=== PATIENT | male | born 1945 ===

== ENCOUNTER 2025-05-14 14:20 | Outpatient (AMB) | payer BC, SELFPAY ==
--- OUTSIDE RECORDS SUMMARY | 2025-05-14 15:05 | XMS_ITS ---
[facility] Name [facility] Organization Unknown Care Team Organization Name Specialty Phone Email Start Date End Da te [facility] Jd Noriega Primary [facility] 08/04/2022 05/15/2024
== END 2025-05-14 14:50 | disposition left against medical advice (07) ==
LOC: HO.HMGAL 14:20
PROVIDERS: Visit Provider Registered Nurse Emergency
DX: J30.89 Other allergic rhinitis (principal)
CPT/HCPCS: 95117; 95165

== ENCOUNTER 2025-05-15 13:43 | Outpatient (AMB) | payer BC, SELFPAY ==
--- OUTSIDE RECORDS SUMMARY | 2025-05-15 15:01 | XMS_ITS | Clinical Summary ---
Author Organization [facility] [address] [facility] Address [address] [facility] [place] [address] Phone Care Team Providers Care Electrologist Name Role Phone Denise Noriega MD Primary Care Provider [phone] Allergies Active Allergy Reactions Criticality Noted Date Comments Levofloxacin 01/03/2019 Medications aspirin 81 mg EC tablet Take 81 mg by mouth daily. Active meclizine (ANTIVERT) 25 mg tablet Take 1 Tablet by mouth 3 times daily as needed (vertigo). 08/26/2022 Active finasteride (PROSCAR) 5 mg tablet Take 1 tablet (5 mg total) by mouth 1 (one) time each day. Do not crush, chew, or split. 90 tablet 1 10/19/2024 Active fenofibrate (LOFIBRA) 160 mg tablet Take 1 tablet (160 mg total) by mouth 1 (one) time each day. 90 tablet 1 03/06/2025 Active levothyroxine (SYNTHROID, LEVOTHROID) 75 mcg tablet Take 1 tablet (75 mcg total) by mouth 1 (one) time each day. 90 tablet 1 03/06/2025 Active losartan (COZAAR) 25 mg tablet Take 1 tablet (25 mg total) by mouth 1 (one) time each day. 90 tablet 1 03/06/2025 Active metFORMIN (GLUCOPHAGE) 500 mg tablet TAKE 1 TABLET IN THE MORNING AND 2 TABLETS IN THE EVENING 270 tablet 1 03/06/2025 Active simvastatin (ZOCOR) 40 mg tablet Take 1.5 tablets (60 mg total) by mouth at bedtime. 135 tablet 1 03/06/2025 Active Active Problems Problem Noted Date Diagnosed Date Overweight (BMI 25.0-29.9) 02/07/2018 Nephrolithiasis 02/08/2017 Overview (07/24/2024): 01/11. Debi Type 2 diabetes mellitus wit h neurological manifestations, controlled ([facility] V24, [facility] V28) 02/19/2016 BPH (benign prostatic hyperplasia) 01/29/2016 Overview (07/24/2024): Prev elevated Psa. Bx neg. Diverticulosis of colon 01/29/2016 Essential hypertension 01/29/2016 Hypercholesteremia 01/29/2016 Hypothyroidism 01/29/2016 PAF (paroxysmal atrial fibri llation) ([facility] V24, [facility] V28) 01/29/2016 Overview (09/04/2024): 2016 Typically occurs with viral illness. ECHO 11/20/13- EF=60-65 %. Trace MR Vitamin D deficiency 01/29/2016 Encounters Date Type Department Care Team Description 03/06/2025 8:30 AM EDT Office Visit [facility] [address] [place] [phone] Denise Noriega MD Type 2 diabetes mellitus with neurological manifestations, controlled ([facility] V24, [facility] V28) (Primary Dx); Essential hypertension; PAF (paroxysmal atrial fibrillation) ([facility] V24, [facility] V28); Hypercholesteremia; Hypothyroidism, unspecified type 02/23/2025 3:30 PM EDT Telemedicine [facility] [address] [place] [phone] Encounter for subsequent annual wellness visit (AWV) in Medicare patient (Primary Dx) 02/22/2025 Telephone Internal Medicine - [facility] [address] [place] [place] [address] Sri Stevens [place] Medicare Annual Wellness Visit Subsequent (AWV DUE after 11/11/2024) from Last 3 Months Immunizations Name Administration Dates Next Due Influenza Quadravalent, MDCK , 0.5ml, preservative free (Flucelvax) 6mo and older 10/26/2019 Influenza trivalent, 0.5mL ( Fluad) 65yo and older 09/04/2024,08/26/2022,10/02/2020,10/23,09/03/2014,08/18/2013 Influenza trivalent, 0.5mL, preservative free (Fluarix; FluLaval; Fluzone) ages 6mo and older (Afluria) 3 years and older 08/07/2016 Influenza, Unspecified 07/29/2017 Pneumococcal conjugate 13 va lent (Prevnar 13, PCV13) 2mo and older 08/09/2017 Pneumococcal polysaccharide 23 valent (Pneumovax 23) 2yo and older 02/17/2016 Tdap Tetanus diptheria acell ular pertussis (Boostrix; Adacel) 7yo and older 02/08/2017 Surgical History Surgery Date Site/Laterality Comments OTHER SURGICAL HISTORY [id number] PROCEDURE: HISTORY OTHER; COMMENT: needle Bx prostate APPENDECTOMY PROCEDURE: HISTORICAL APPENDECTOMY OTHER SURGICAL HISTORY childhood PROCEDURE: HISTORY OTHER; COMMENT: Bronchial ademona removal Medical History Medical History Date Comments Vitamin D deficiency 01/29/2016 DX:Vitamin D deficiency BPH (benign prostatic hyperplasia) 01/29/2016 DX:BPH (benign prostatic hyperplasia) PAF (paroxysmal atrial fibri llation) ([facility] V24, [facility] V28) 01/29/2016 DX:PAF (paroxysmal atrial fibrillation) ([facility]); COMMENT: Typically occurs with viral illness Hypothyroidism 01/29/2016 DX:Hypothyroidis m Hypercholesteremia 01/29/2016 DX:Hyperchole steremia Hypertension 01/29/2016 DX:Hypertension PAT (paroxysmal atrial tachy cardia) ([facility] V24) 01/29/2016 DX:PAT (paroxysmal atrial tachycardia) ([facility]); COMMENT: Holter 11/06/13 Diverticulosis of colon 01/29/2016 DX:Diver ticulosis of colon Family History Medical History Relation Name Comments Crohn's disease Brother Coronary artery disease Father Diabetes Father Alzheimer's disease Mother Relation Name Status Comments Brother Father Mother Social History Tobacco Use Types Packs/Day Years Used Date Smoking Tobacco: Never Smokeless Tobacco: Never Tobacco Cessation:Counseling Given: Not Answered Alcohol Use Standard Drinks/Week Comments No 0 (1 standard drink = 0.6 oz pur e alcohol) Housing Instability Answer Date Recorde d Are you worried that in the next 2 months you may not have stable housing? No 02/23/2025 Food Access & Nutrition Answer Date Rec orded Do you have access to a vari ety of food including fruits and vegetables? Yes 02/23/2025 Access to Healthcare Answer Date Record ed Within the last 3 months, ho w many times did you visit the emergency department for your medical care? 0 02/23/2025 Health Literacy Answer Date Recorded How often do you need to hav e someone help you when you read instructions, pamphlets, or other written material from your doctor or pharmacy? Never 02/23/2025 Caregiver: How often do you need to have someone help you when you read instructions, pamphlets, or other written material from your doctor or pharmacy? Not on file 02/23/2025 Financial Risk Answer Date Recorded How hard is it for you to pa y for the very basics like food, housing, medical care, and air conditioning / heating? Not very hard 02/23/2025 Transportation Answer Date Recorded Has the lack of transportati on kept you from meetings, work, or from getting things needed for daily living? No Has the lack of transportati on kept you from medical appointments or from getting medications? No 02/23/2025 Social Isolation Answer Date Recorded How often do you feel lonely or isolated from th ose around you? Never 02/23/2025 Food Risk Answer Date Recorded Within the past 12 months we worried whether our food would run out before we got money to buy more. Never true 02/23/2025 Within the past 12 months th e food we bought just didn't last and we didn't have money to get more. Never true 02/23/2025 Dependent Care Answer Date Recorded Do you need help finding or paying for care for your loved ones. For example, child care centre manager or elderly care for an older adult? No 02/23/2025 Education Answer Date Recorded Do you think completing more education or training, like finishing a GED, going to college, or learning a trade, would be helpful for you? No 02/23/2025 Employment and Income Answer Date Recor ded During the last four weeks, have you been actively looking for work? No 02/23/2025 Living Situation Answer Date Recorded What is your living situation? 0 02/23/2025 Sex and Gender Information Value Date Recorded Sex Assigned at Not on file Legal Sex Male 9:51 PM EST Gender Identity Not on file Sexual Orientation Not on file Occupation Industry Job Start Date Job End Date RETIRED Not on file Not on file Not on file Obstetrics History Last Filed Vital Signs Vital Sign Reading Time Taken Comments Blood Pressure 132/67 03/06/2025 8:32 AM EDT Pulse 56 03/06/2025 8:32 AM EDT Temperature 36.2 C (97.2 F) 03/06/2025 8:32 AM EDT Respiratory Rate - - Oxygen Saturation - - Inhaled Oxygen Concentration - - Weight 75.2 kg (165 lb 12.8 oz) 03/06/2025 8:32 AM EDT Height 167.6 cm (5' 6 ) 03/06/2025 8:32 AM EDT Body Mass Index 26.76 03/06/2025 8:32 AM EDT Plan of Treatment Upcoming Encounters Date Type Department Care Team (Late st Contact Info) Description 10/08/2025 8:30 AM EST Office Visit Adult [facility] [address] [place] [phone] Denise Noriega MD [address] [place] [address] Health Maintenance Due Date Last Done Comments Zoster Vaccines (1 of 2) 1994 RSV Immunization Adult Patients (1 - 1-dose 75+ series) 11/29/2019 Diabetes: Annual Retina Eye Exam 04/27/2024 04/27/2023 COVID-19 Vaccine ( season) 2024 Influenza Vaccine (#1) 2025 , 08/22/2023, 08/26/2022, Additional history exists Diabetes: Annual Urine Albumin-Creatinine Ratio (uACR) 09/01/2025 09/01/2024, 02/29/2024 Diabetes: Blood Sugar Control Test (HGBA1C) 09/01/2025 03/02/2025, 09/01/2024, 02/29/2024, Additional history exists Falls Risk Assessment 02/23/2026 02/23/2025 Social Influencers of Health Screening 02/23/2026 02/23/2025 Diabetes: Annual GFR (Glomerular Filtration Rate) 03/02/2026 03/02/2025, 09/01/2024, 02/29/2024, Additional history exists Hypertension/CHF/CAD Annual BMP Blood Test 03/02/2026 03/02/2025, 09/01/2024, 02/29/2024, Additional history exists Diabetes: Annual Foot Exam 03/06/202603/06, 09/04/2024, 03/01/2024 Cholesterol Screening (Lipid Panel) 03/02/2030 03/02/2025, 09/01/2024, 02/29/2024, Additional history exists DTaP,Tdap,and Td Vaccines (3 - Td or Tdap) 03/06/2034 03/06/2024, 02/08/2017 Pneumococcal Vaccine: 50+ Years Completed 08/09/2017, 02/17/2016 Depression Screening Completed 02/23/2025 HIB Vaccines Aged Out No longer eligi ble based on patient's age to complete this topic HPV Vaccines Aged Out No longer eligi ble based on patient's age to complete this topic Hepatitis A Vaccines Aged Out No long er eligible based on patient's age to complete this topic Hepatitis B Vaccines Aged Out No long er eligible based on patient's age to complete this topic IPV Vaccines Aged Out No longer eligi ble based on patient's age to complete this topic MMR Vaccines Aged Out No longer eligi ble based on patient's age to complete this topic Meningococcal ACWY Vaccine Aged Out N o longer eligible based on patient's age to complete this topic Meningococcal B Vaccine Aged Out No l onger eligible based on patient's age to complete this topic RSV Immunization Patients Under 20 months Aged Out No longer eligible based on patient's age to complete this topic Varicella Vaccines Aged Out No longer eligible based on patient's age to complete this topic Procedures Procedure Name Priority Date/Time Associated Diagnosis Comments PROSTATE SPECIFIC ANTIGEN DIAGNOSTIC Routine 03/02/2025 9:10 AM EDT Enlarged prostate with lower urinary tract symptoms (LUTS) THYROID STIMULATING HORMONE WITH REFLEX TO FREE T4 AND FREE T3 Routine 03/02/2025 9:10 AM EDT Hypothyroidism, unspecified type LIPID PANEL WITH REFLEX TO DIRECT LDL Routine 03/02/2025 9:10 AM EDT Type 2 diabetes mellitus with neurological manifestations, controlled ([facility] V24, [facility] V28) HEMOGLOBIN A1C Routine 03/02/2025 9:10 AM EDT Type 2 diabetes mellitus with neurological manifestations, controlled ([facility] V24, [facility] V28) COMPREHENSIVE METABOLIC PANEL Routine 03/02/2025 9:10 AM EDT Type 2 diabetes mellitus with neurological manifestations, controlled ([facility] V24, [facility] V28) MICROALBUMIN CREATININE URINE RATIO Routine 09/01/2024 8:59 AM EST Essential hypertension, 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 ([facility] V24, [facility] V28) DIABETES FOOT EXAM Routine 03/01/2024 from Last 3 Months or Most Recently Relevant to Health Maintenance Results * Thyroid stimulating hormone with reflex to free t4 and free t3 (03/02/2025 9:10 AM EDT) Pathologist [facility] TSH 2.65 0.40 - 4.00 mcIU/mL LAB CHEMISTRY METHOD 03/02/2025 1:46 PM EDT [facility] Blood Venous blood specimen / Unknown Venipuncture / Unknown 03/02/2025 9:10 AM EDT 03/02/2025 9:14 AM EDT us C Ti Noriega MD LAB BLOOD ORDERABLES Final Res ult [facility] [address] [place] [address], [place] [phone] * (ABNORMAL) Lipid panel with reflex to direct LDL (03/02/2025 9:10 AM EDT) Cholesterol 143 0 - 200 mg/dL LAB CHEMISTRY METHOD 03/02/2025 12:01 PM EDT [facility] Triglycerides 159(H) 0 - 150 mg/dL LAB CHEMISTRY METHOD 03/02/2025 12:01 PM EDT [facility] HDL 42 >=40 mg/dL LAB CHEMISTRY METHOD 03/02/2025 12:01 PM EDT [facility] LDL Calculated 69 0 - 100 mg/dL LAB CHEMISTRY METHOD 03/02/2025 12:01 PM EDT [facility] VLDL Cholesterol Joshua 31.8 mg/dL LAB CHEMISTRY METHOD 03/02/2025 12:01 PM EDT [facility] Non HDL Chol. (LDL+VLDL) 101 <145 mg/dL LAB CHEMISTRY METHOD 03/02/2025 12:01 PM EDT [facility] Chol/HDL Ratio 3.4 0.0 - 4.4 LAB CHEMISTRY METHOD 03/02/2025 12:01 PM EDT [facility] Blood Venous blood specimen / Unknown Venipuncture / Unknown 03/02/2025 9:10 AM EDT 03/02/2025 9:14 AM EDT C Ti Noriega MD LAB BLOOD ORDERABLES Final Res ult [facility] [address] [place] [address], * Prostate specific antigen diagnostic (03/02/2025 9:10 AM EDT) PSA 2.69 0.00 - 4.00 ng/mL LAB CHEMISTRY METHOD 03/02/2025 12:55 PM EDT [facility] Blood Venous blood specimen / Unknown Venipuncture / Unknown 03/02/2025 9:10 AM EDT 03/02/2025 9:14 AM EDT Narrative [facility] - 03/02/2025 12:55 PM EDT The Siemens Advia Centaur Chemiluminescent Immunoassay is used. Results obtained with different assay methods or kits cannot be used interchangeably. Results cannot be interpreted as absolute evidence of the presence or absence of malignant disease. Jonny MCKEON LAB BLOOD ORDERABLES Final Result Performing Organization Address [facility]/ZIP Co de Phone Number [facility] [address] [place] [address], [place] [phone] * Hemoglobin A1c (03/02/2025 9:10 AM EDT) Pathologist [facility] Hemoglobin A1C 6.4 <6.5 % LAB CHEMISTRY METHOD 03/02/2025 1:52 PM EDT [facility] Mean Bld Glu Estim. 137 mg/dL LAB CHEMISTRY METHOD 03/02/2025 1:52 PM EDT [facility] Blood Venous blood specimen / Unknown Venipuncture / Unknown 03/02/2025 9:10 AM EDT 03/02/2025 9:14 AM EDT Denise Noriega MD LAB BLOOD ORDERABLES Final Res ult Performing Organization Address [facility]/ZIP Co de Phone Number [facility] [address] [place] [address], [place] [phone] * (ABNORMAL) Comprehensive metabolic panel (03/02/2025 9:10 AM EDT) Pathologist [facility] Sodium 145 133 - 145 mmol/L LAB CHEMISTRY METHOD 03/02/2025 12:01 PM EDT [facility] Potassium 4.4 3.5 - 5.5 mmol/L LAB CHEMISTRY METHOD 03/02/2025 12:01 PM EDT [facility] Chloride 112(H) 96 - 110 mmol/L LAB CHEMISTRY METHOD 03/02/2025 12:01 PM EDT [facility] CO2 28 21 - 32 mmol/L LAB CHEMISTRY METHOD 03/02/2025 12:01 PM EDT [facility] Anion Gap 5 3 - 11 LAB CHEMISTRY METHOD 03/02/2025 12:01 PM [facility] Glucose 130(H) 70 - 100 mg/dL LAB CHEMISTRY METHOD 03/02/2025 12:01 PM [facility] BUN 24 5 - 25 mg/dL LAB CHEMISTRY METHOD 03/02/2025 12:01 [facility] Creatinine 1.26 0.70 - 1.30 mg/dL LAB CHEMISTRY METHOD 03/02/2025 12:01 [facility] eGFR 58(L) >=60 mL/min/1. 73m2 LAB CHEMISTRY METHOD 03/02/2025 12:01 [facility] Comment:Calculation based on the Chronic Kidney Disease Epidemiology Collaboration (CKD-EPI) equation refit without adjustment for race. BUN/Creatinine Ratio 19.0 LAB CHEMISTRY METHOD 03/02/2025 12:01 [facility] Calcium 9.7 8.5 - 10.5 mg/dL LAB CHEMISTRY METHOD 03/02/2025 12:01 [facility] AST (SGOT) 20 10 - 42 unit/L LAB CHEMISTRY METHOD 03/02/2025 12:01 [facility] ALT (SGPT) 25 10 - 60 unit/L LAB CHEMISTRY METHOD 03/02/2025 12:01 [facility] Alkaline Phosphatase 40(L) 42 - 121 unit/L LAB CHEMISTRY METHOD 03/02/2025 12:01 [facility] Total Protein 6.5 6.0 - 8.0 g/dL LAB CHEMISTRY METHOD 03/02/2025 12:01 [facility] Albumin 3.7 3.2 - 5.0 g/dL LAB CHEMISTRY METHOD 03/02/2025 12:01 [facility] Total Bilirubin 0.4 0.0 - 1.4 mg/dL LAB CHEMISTRY METHOD 03/02/2025 12:01 PM EDT [facility] Blood Venous blood specimen / Unknown Venipuncture / Unknown 03/02/2025 9:10 AM EDT 03/02/2025 9:14 AM EDT us Denise Noriega MD LAB BLOOD ORDERABLES Final Res ult [facility] [address] [place] [address], * Microalbumin creatinine urine ratio (09/01/2024 8:59 AM EST) Creatinine, Urine 186.0 mg/dL LAB CHEMISTRY METHOD 09/01/2024 12:05 PM EST [facility] Microalb, Ur 20.1 0.0 - 29.0 mg/L LAB CHEMISTRY METHOD 09/01/2024 12:05 PM EST [facility] Microalb/Creat Ratio 11 <30 mg/g creat LAB CHEMISTRY METHOD 09/01/2024 12:05 PM EST [facility] Urine Urine specimen obtained by clean catch procedure / Unknown Non-blood Collection / Unknown 09/01/2024 8:59 AM EST 09/01/2024 8:59 AM EST us Denise Noriega MD LAB URINE ORDERABLES Final Res ult [facility] [address] [place] [address], [place] [phone] * Diabetes Foot Exam (03/01/2024) Diabetes: Annual Foot Exam Abstracted us Kirit Estrada MD HEALTH MAINTENANCE Final Result from Last 3 Months or Most Recently Relevant to Health Maintenance [place] [id number] [facility] Care Teams Electrologist Relationship Specialty Start Date End Date Denise Noriega MD [address] [facility] [place] [id number] PCP - General Internal Medicine 11/20/15
== END 2025-05-15 14:01 | disposition home or self-care (01) ==
LOC: HO.HMGAL 13:43
PROVIDERS: Visit Provider Registered Nurse Emergency
DX: J30.89 Other allergic rhinitis (principal)
CPT/HCPCS: 95117; 95165

== ENCOUNTER 2025-06-04 13:57 | Outpatient (AMB) | payer BC, SELFPAY ==
--- OUTSIDE RECORDS SUMMARY | 2025-06-04 16:19 | XMS_ITS | Clinical Summary ---
Author Organization [facility] 230 [facility] Address 230 [facility] [place] [address] Phone Care Team Providers Care Mental Health Social Worker Name Role Phone Denise Noriega MD Primary Care Provider [phone] Allergies Active Allergy Reactions Criticality Noted Date [...] diabetes mellitus wit h neurological manifestations, controlled ([facility] V24, [facility] V28) 02/19/2016 BPH (benign prostatic hyperplasia) 01/29/2016 Overview (07/24/2024): Prev elevated Psa. Bx neg. Diverticulosis of colon 01/29/2016 Essential hypertension 01/29/2016 Hypercholesteremia 01/29/2016 Hypothyroidism 01/29/2016 PAF (paroxysmal atrial fibri llation) ([facility] V24, [facility] V28) 01/29/2016 Overview (09/04/2024): 2016 Typically occurs with viral illness. ECHO 11/20/13- EF=60-65 %. Trace MR Vitamin D deficiency 01/29/2016 Encounters Date Type Department Care Team Description 03/06/2025 8:30 AM EDT Office Visit Adult Medicine [address] [address] Denise Noriega MD Type 2 diabetes mellitus with neurological manifestations, controlled [place] [place] [facility] V28) (Primary Dx); Essential hypertension; PAF (paroxysmal atrial fibrillation) ([facility] V24, [facility] V28); Hypercholesteremia; Hypothyroidism, unspecified type from Last 3 Months Immunizations Name Administration [...] Surgery Date Site/Laterality Comments OTHER SURGICAL HISTORY [id number] PROCEDURE: HISTORY OTHER; COMMENT: needle Bx prostate APPENDECTOMY PROCEDURE: HISTORICAL APPENDECTOMY OTHER SURGICAL HISTORY childhood PROCEDURE: HISTORY OTHER; COMMENT: Bronchial ademona removal Medical History Medical History Date Comments Vitamin D deficiency 01/29/2016 DX:Vitamin D deficiency BPH (benign prostatic hyperplasia) 01/29/2016 DX:BPH (benign prostatic hyperplasia) PAF (paroxysmal atrial fibri llation) ([facility] V24, [facility] V28) 01/29/2016 DX:PAF (paroxysmal atrial fibrillation) ([facility]); COMMENT: Typically occurs with viral illness Hypothyroidism 01/29/2016 DX:Hypothyroidis m Hypercholesteremia 01/29/2016 DX:Hyperchole steremia Hypertension 01/29/2016 DX:Hypertension PAT (paroxysmal atrial tachy cardia) ([facility] V24) 01/29/2016 DX:PAT (paroxysmal atrial tachycardia) ([facility]); COMMENT: Holter 11/06/13 Diverticulosis of colon 01/29/2016 [...] Record ed Within the last 3 months, geraldine w many times did you visit the [...] for your loved ones. For example, child psychology teacher or elderly care for an older adult? [...] 8:30 AM EST Office Visit Adult Medicine [facility] [place] [address] [place] [address] Denise Noriega MD [address] [place] [address] Health Maintenance Due Date Last Done Comments Zoster Vaccines (1 of 2) 1994 RSV Immunization Adult Patients (1 - 1-dose 75+ series) 11/29/2019 Diabetes: Annual Retina Eye Exam 04/27/2024 04/27/2023 COVID-19 Vaccine ( season) 2025 Influenza Vaccine (#1) 2025 , 08/22/2023, 08/26/2022, [...] Procedure Name Priority Date/Time Associated Diagnosis Comments COMPREHENSIVE METABOLIC PANEL Routine 03/02/2025 9:10 AM EDT Type 2 diabetes mellitus with neurological manifestations, controlled (CMS/HCC V24, CMS/HCC V28) HEMOGLOBIN A1C Routine 03/02/2025 9:10 AM EDT Type 2 diabetes mellitus with neurological manifestations, controlled (CMS/HCC V24, CMS/HCC V28) LIPID PANEL WITH REFLEX TO DIRECT LDL Routine 03/02/2025 9:10 AM EDT Type 2 diabetes mellitus with neurological manifestations, controlled (CMS/HCC V24, CMS/HCC V28) MICROALBUMIN CREATININE URINE RATIO Routine 09/01/2024 8:59 AM EST Essential hypertension, 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 (CMS/HCC V24, CMS/HCC V28) DIABETES FOOT EXAM Routine 03/01/2024 from Last 3 Months or Most Recently Relevant to Health Maintenance Results * (ABNORMAL) Lipid panel with reflex to direct LDL (03/02/2025 9:10 AM EDT) Cholesterol 143 0 - 200 mg/dL LAB CHEMISTRY METHOD 03/02/2025 12:01 PM EDT [facility] Triglycerides 159(H) 0 - 150 mg/dL LAB CHEMISTRY METHOD 03/02/2025 12:01 PM EDT [facility] HDL 42 >=40 mg/dL LAB CHEMISTRY METHOD [facility] LDL Calculated 69 0 - 100 mg/dL LAB CHEMISTRY METHOD [facility] VLDL Cholesterol Joshua 31.8 mg/dL LAB CHEMISTRY METHOD 03/[facility] Non HDL Chol. (LDL+VLDL) 101 <145 mg/dL LAB CHEMISTRY METHOD 03/[facility] Chol/HDL Ratio 3.4 0.0 - 4.4 LAB CHEMISTRY METHOD 03/02/2025 12:01 PM [facility] Blood Venous blood specimen / Unknown Venipuncture / Unknown 03/02/2025 9:10 AM EDT 03/02/2025 9:14 AM EDT us C Ti Noriega MD LAB BLOOD ORDERABLES Final Res ult [facility] [address] [place] [address], * Hemoglobin A1c (03/02/2025 9:10 AM EDT) Hemoglobin A1C 6.4 <6.5 % LAB CHEMISTRY METHOD 03/02/2025 1:52 PM [facility] Mean Bld Glu Estim. 137 mg/dL LAB CHEMISTRY METHOD 03/02/2025 1:52 PM [facility] Blood Venous blood specimen / Unknown Venipuncture / Unknown 03/02/2025 9:10 AM EDT 03/02/2025 9:14 AM EDT C Ti Noriega MD LAB BLOOD ORDERABLES Final Res ult [facility] [address] [place] [address], * (ABNORMAL) Comprehensive metabolic panel (03/02/2025 9:10 AM EDT) Sodium 145 133 - 145 mmol/L LAB CHEMISTRY METHOD 03/02/2025 12:01 PM [facility] Potassium 4.4 3.5 - 5.5 mmol/L LAB CHEMISTRY METHOD 03/02/2025 12:01 PM [facility] Chloride 112(H) 96 - 110 mmol/L LAB CHEMISTRY METHOD 03/02/2025 12:01 PM [facility] CO2 28 21 - 32 mmol/L LAB CHEMISTRY METHOD 03/02/2025 12:01 PM [facility] Anion Gap 5 3 - 11 LAB CHEMISTRY METHOD 03/02/2025 12:01 PM [facility] Glucose 130(H) 70 - 100 mg/dL LAB CHEMISTRY METHOD 03/02/2025 12:01 PM [facility] BUN 24 5 - 25 mg/dL LAB CHEMISTRY METHOD 03/02/2025 12:01 PM [facility] Creatinine 1.26 0.70 - 1.30 mg/dL LAB CHEMISTRY METHOD 03/02/2025 12:01 PM [facility] eGFR 58(L) >=60 mL/min/1. 73m2 LAB CHEMISTRY METHOD 03/02/2025 12:01 PM [facility] Comment:Calculation based on the Chronic Kidney Disease Epidemiology Collaboration (CKD-EPI) equation refit without adjustment for race. BUN/Creatinine Ratio 19.0 LAB CHEMISTRY METHOD 03/02/2025 12:01 PM [facility] Calcium 9.7 8.5 - 10.5 mg/dL LAB CHEMISTRY METHOD 03/02/2025 12:01 PM [facility] AST (SGOT) 20 10 - 42 unit/L LAB CHEMISTRY METHOD 03/02/2025 12:01 PM [facility] ALT (SGPT) 25 10 - 60 unit/L LAB CHEMISTRY METHOD 03/02/2025 12:01 PM [facility] Alkaline Phosphatase 40(L) 42 - 121 unit/L LAB CHEMISTRY METHOD 03/02/2025 12:01 PM [facility] Total Protein 6.5 6.0 - 8.0 g/dL LAB CHEMISTRY METHOD 03/02/2025 12:01 PM [facility] Albumin 3.7 3.2 - 5.0 g/dL LAB CHEMISTRY METHOD 03/02/2025 12:01 PM [facility] Total Bilirubin 0.4 0.0 - 1.4 mg/dL LAB CHEMISTRY METHOD 03/02/2025 12:01 PM [facility] Blood Venous blood specimen / Unknown Venipuncture / Unknown 03/02/2025 9:10 AM EDT 03/02/2025 9:14 AM EDT us C Ti Noriega MD LAB BLOOD ORDERABLES Final Res ult [facility] [address] [place] [address], * Microalbumin creatinine urine ratio (09/01/2024 8:59 AM EST) Creatinine, Urine 186.0 mg/dL LAB CHEMISTRY METHOD 09/01/2024 12:05 PM EST [facility] Microalb, Ur 20.1 0.0 - 29.0 mg/L LAB CHEMISTRY METHOD 09/01/2024 12:05 PM [facility] Microalb/Creat Ratio 11 <30 mg/g creat LAB CHEMISTRY METHOD 09/01/2024 12:05 PM [facility] Urine Urine specimen obtained by clean catch procedure / Unknown Non-blood Collection / Unknown 09/01/2024 8:59 AM EST 09/01/2024 8:59 AM EST us Denise Noriega MD LAB URINE ORDERABLES Final Res ult [facility] [address] [place] [address], * Diabetes Foot Exam (03/01/2024) Pathologist [facility] Diabetes: Annual Foot Exam Abstracted [employer] Provider HEALTH MAINTENANCE Final Result from Last 3 Months or Most Recently Relevant to Health Maintenance Insurance [facility] Care Teams Mental Health Social Worker Relationship Specialty Start Date End Date Denise Noriega MD [address] [place] [id number] PCP - General Internal Medicine 11/20/15
== END 2025-06-04 14:02 | disposition home or self-care (01) ==
LOC: HO.HMGAL 13:57
PROVIDERS: Visit Provider Registered Nurse Emergency
DX: J30.89 Other allergic rhinitis (principal)
CPT/HCPCS: 95117; 95165

== ENCOUNTER 2025-07-18 08:50 | Outpatient (AMB) | payer BC, SELFPAY ==
--- OUTSIDE RECORDS SUMMARY | 2025-07-18 09:31 | XMS_ITS | Clinical Summary ---
Author Organization [facility] 230 [facility] Address [address] [facility] [place] [address] Phone Care Team Providers Care Hardwood Sawyer Name Role Phone Denise Noriega MD Primary Care Provider [phone] Allergies Active Allergy Reactions Criticality Noted Date [...] diabetes mellitus wit h neurological manifestations, controlled [place] [place] [facility] [place] 02/19/2016 BPH (benign prostatic hyperplasia) 01/29/2016 Overview (07/24/2024): Prev elevated Psa. Bx neg. Diverticulosis of colon 01/29/2016 Essential hypertension 01/29/2016 Hypercholesteremia 01/29/2016 Hypothyroidism 01/29/2016 PAF (paroxysmal atrial fibri llation) [place] [facility] [place] 01/29/2016 Overview (09/04/2024): 2016 Typically occurs with viral illness. ECHO 11/20/13- EF=60-65 %. Trace MR Vitamin D deficiency 01/29/2016 Immunizations Immunization Administration Dates Next Due Influenza Quadravalent, MDCK [...] Surgery Date Site/Laterality Comments OTHER SURGICAL HISTORY [id number] PROCEDURE: HISTORY OTHER; COMMENT: needle Bx prostate APPENDECTOMY PROCEDURE: HISTORICAL APPENDECTOMY OTHER SURGICAL HISTORY childhood PROCEDURE: HISTORY OTHER; COMMENT: Bronchial ademona removal Medical History Medical History Date Comments Vitamin D deficiency 01/29/2016 DX:Vitamin D deficiency BPH (benign prostatic hyperplasia) 01/29/2016 DX:BPH (benign prostatic hyperplasia) PAF (paroxysmal atrial fibri llation) ([facility], [facility] V28) 01/29/2016 DX:PAF (paroxysmal atrial fibrillation) ([facility]); COMMENT: Typically occurs with viral illness Hypothyroidism 01/29/2016 DX:Hypothyroidis m Hypercholesteremia 01/29/2016 DX:Hyperchole steremia Hypertension 01/29/2016 DX:Hypertension PAT (paroxysmal atrial tachy cardia) ([facility] V24) 01/29/2016 DX:PAT (paroxysmal atrial tachycardia) ([facility]); COMMENT: Holter 11/06/13 Diverticulosis of [...] care for your loved ones. For example, early childhood associate or elderly care for an older adult? [...] Date Recorded What is your living situation? Unrecognized valu e 02/23/2025 Sex and Gender Information Value Date [...] 8:30 AM EST Office Visit Adult Medicine - [place] [address] [place] [address] Denise Noriega MD [address] [place] [address] Health Maintenance Due Date Last Done Comments [...] 2 diabetes mellitus with neurological manifestations, controlled ([facility] V24, [facility] V28) HEMOGLOBIN A1C Routine 03/02/2025 9:10 AM [...] to direct LDL (03/02/2025 9:10 AM EDT) [facility] Signature Cholesterol 143 0 - 200 mg/dL LAB CHEMISTRY METHOD 03/02/2025 12:01 PM EDT [facility] Triglycerides 159(H) 0 - 150 mg/dL LAB CHEMISTRY METHOD 03/02/2025 12:01 PM EDT [facility] HDL 42 >=40 mg/dL LAB CHEMISTRY METHOD 03/02/2025 12:01 PM EDT [facility] LDL Calculated 69 0 - 100 mg/dL LAB CHEMISTRY METHOD 03/02/2025 12:01 PM EDT [facility] VLDL Cholesterol Joshua 31.8 mg/dL LAB CHEMISTRY METHOD 03/02/2025 12:01 PM EDT [facility] Non HDL Chol. (LDL+VLDL) 101 <145 mg/dL LAB CHEMISTRY METHOD 03/02/2025 12:01 PM EDT [facility] Chol/HDL Ratio 3.4 0.0 - 4.4 LAB CHEMISTRY METHOD 03/02/2025 12:01 PM EDT [facility] Blood Venous blood specimen / Unknown Venipuncture / Unknown 03/02/2025 9:10 AM EDT 03/02/2025 9:14 AM EDT us Denise Noriega MD LAB BLOOD ORDERABLES Final Res ult [facility] [address] [place] [address], * Hemoglobin A1c (03/02/2025 9:10 AM EDT) Hemoglobin A1C 6.4 <6.5 % LAB CHEMISTRY METHOD 03/02/2025 1:52 PM EDT [facility] Mean Bld Glu Estim. 137 mg/dL LAB CHEMISTRY METHOD 03/02/2025 1:52 PM EDT [facility] Blood Venous blood specimen / Unknown Venipuncture / Unknown 03/02/2025 9:10 AM EDT 03/02/2025 9:14 AM EDT us Denise Noriega MD LAB BLOOD ORDERABLES Final Res ult [facility] [address] [place] [address], * (ABNORMAL) Comprehensive metabolic panel (03/02/2025 9:10 AM EDT) Sodium 145 133 - 145 mmol/L LAB CHEMISTRY METHOD 03/02/2025 12:01 PM [facility] Potassium 4.4 3.5 - 5.5 mmol/L LAB CHEMISTRY METHOD 03/02/2025 12:01 PM [facility] Chloride 112(H) 96 - 110 mmol/L LAB CHEMISTRY METHOD 03/02/2025 12:01 PM [facility] CO2 28 21 - 32 mmol/L LAB CHEMISTRY METHOD 03/02/2025 12:01 PM [facility] Anion Gap 5 3 - 11 LAB CHEMISTRY METHOD 03/02/2025 12:01 PM [facility] Glucose 130(H) 70 - 100 mg/dL LAB CHEMISTRY METHOD 03/02/2025 12:01 PM [facility] BUN 24 5 - 25 mg/dL LAB CHEMISTRY METHOD 03/02/2025 12:01 PM [facility] Creatinine 1.26 0.70 - 1.30 mg/dL LAB CHEMISTRY METHOD 03/02/2025 12:01 PM [facility] eGFR 58(L) >=60 mL/min/1. 73m2 LAB CHEMISTRY METHOD 03/02/2025 12:01 PM [facility] Comment:Calculation based on the Chronic Kidney Disease Epidemiology Collaboration (CKD-EPI) equation refit without adjustment for race. BUN/Creatinine Ratio 19.0 LAB CHEMISTRY METHOD 03/02/2025 12:01 PM [facility] Calcium 9.7 8.5 - 10.5 mg/dL LAB CHEMISTRY METHOD 03/02/2025 12:01 PM [facility] AST (SGOT) 20 10 - 42 unit/L LAB CHEMISTRY METHOD 03/02/2025 12:01 PM [facility] ALT (SGPT) 25 10 - 60 unit/L LAB CHEMISTRY METHOD 03/02/2025 12:01 PM [facility] Alkaline Phosphatase 40(L) 42 - 121 unit/L LAB CHEMISTRY METHOD 03/02/2025 12:01 PM [facility] Total Protein 6.5 6.0 - 8.0 g/dL LAB CHEMISTRY METHOD 03/02/2025 12:01 PM [facility] Albumin 3.7 3.2 - 5.0 g/dL LAB CHEMISTRY METHOD 03/02/2025 12:01 PM [facility] Total Bilirubin 0.4 0.0 - 1.4 mg/dL LAB CHEMISTRY METHOD 03/02/2025 12:01 PM [facility] Blood Venous blood specimen / Unknown Venipuncture / Unknown 03/02/2025 9:10 AM EDT 03/02/2025 9:14 AM EDT C Ti Noriega MD LAB BLOOD ORDERABLES Final Res ult [facility] [address] [place] [address], * Microalbumin creatinine urine ratio (09/01/2024 8:59 AM EST) Creatinine, Urine 186.0 mg/dL LAB CHEMISTRY METHOD 09/01/2024 12:05 PM EST [facility] Microalb, Ur 20.1 0.0 - 29.0 mg/L LAB CHEMISTRY METHOD 09/01/2024 12:05 PM EST [facility] Microalb/Creat Ratio 11 <30 mg/g creat LAB CHEMISTRY METHOD 09/01/2024 12:05 PM EST [facility] Urine Urine specimen obtained by clean catch procedure / Unknown Non-blood Collection / Unknown 09/01/2024 8:59 AM EST 09/01/2024 8:59 AM EST Denise Noriega MD LAB URINE ORDERABLES Final Res ult [facility] [address] [place] [address], [place] [phone] * Diabetes Foot Exam (03/01/2024) Diabetes: Annual Foot Exam Abstracted us Historical Provider HEALTH MAINTENANCE Final Result from Last 3 Months or Most Recently Relevant to Health Maintenance Insurance [facility] Care Teams Hardwood Sawyer Relationship Specialty Start Date End Date Denise Noriega MD [address] [place] [address] PCP - General Internal Medicine 11/20/15
== END 2025-07-18 08:51 | disposition home or self-care (01) ==
LOC: HO.HMGAL 08:50
PROVIDERS: PCP Pediatrics; Visit Provider Registered Nurse Emergency
DX: J30.89 Other allergic rhinitis (principal)
CPT/HCPCS: 95117; 95165

== ENCOUNTER 2025-08-06 14:20 | Outpatient (AMB) | payer BC, SELFPAY ==
--- OUTSIDE RECORDS SUMMARY | 2025-08-06 16:42 | XMS_ITS | Clinical Summary ---
Author Organization [facility] [address] [facility] Address [address] [facility] [place] [address] Phone Care Team Providers Care Cigarette Carton Sealer Name Role Phone Denise Noriega MD Primary Care Provider [phone] Allergies Active Allergy Reactions Criticality Noted Date [...] diabetes mellitus wit h neurological manifestations, controlled ([facility] V24, [facility] V28) 02/19/2016 BPH (benign prostatic hyperplasia) 01/29/2016 Overview (07/24/2024): Prev elevated Psa. Bx neg. Diverticulosis of colon 01/29/2016 Essential hypertension 01/29/2016 Hypercholesteremia 01/29/2016 Hypothyroidism 01/29/2016 PAF (paroxysmal atrial fibri llation) ([facility] V24, [facility] V28) 01/29/2016 Overview (09/04/2024): 2016 Typically occurs [...] Surgery Date Site/Laterality Comments OTHER SURGICAL HISTORY [id number] PROCEDURE: HISTORY OTHER; COMMENT: needle Bx prostate APPENDECTOMY PROCEDURE: HISTORICAL APPENDECTOMY OTHER SURGICAL HISTORY childhood PROCEDURE: HISTORY OTHER; COMMENT: Bronchial ademona removal Medical History Medical History Date Comments Vitamin D deficiency 01/29/2016 DX:Vitamin D deficiency BPH (benign prostatic hyperplasia) 01/29/2016 DX:BPH (benign prostatic hyperplasia) PAF (paroxysmal atrial fibri llation) ([facility] V24, [facility] V28) 01/29/2016 DX:PAF (paroxysmal atrial fibrillation) ([facility]); COMMENT: Typically occurs with viral illness Hypothyroidism 01/29/2016 DX:Hypothyroidis m Hypercholesteremia 01/29/2016 DX:Hyperchole steremia Hypertension 01/29/2016 DX:Hypertension PAT (paroxysmal atrial tachy cardia) ([facility] V24) 01/29/2016 DX:PAT (paroxysmal atrial tachycardia) ([facility]); COMMENT: Holter 11/06/13 Diverticulosis of colon 01/29/2016 [...] for your loved ones. For example, child psychologist or elderly care for an older adult? [...] AM EST Office Visit Adult Medicine - [place] [address] [place] [address] Denise Noriega MD [address] [place] [address] Health Maintenance Due Date Last Done Comments [...] 2 diabetes mellitus with neurological manifestations, controlled ([facility] V24, [facility] V28) HEMOGLOBIN A1C Routine 03/02/2025 9:10 AM [...] to direct LDL (03/02/2025 9:10 AM EDT) [facility] Signature Cholesterol 143 0 - 200 mg/dL LAB CHEMISTRY METHOD 03/02/2025 12:01 PM EDT [facility] Triglycerides 159(H) 0 - 150 mg/dL LAB CHEMISTRY METHOD 03/02/2025 12:01 PM EDT [facility] HDL 42 >=40 mg/dL LAB CHEMISTRY METHOD 03/02/2025 12:01 PM EDT [facility] LDL Calculated 69 0 - 100 mg/dL LAB CHEMISTRY METHOD 03/02/2025 12:01 PM EDT [facility] VLDL Cholesterol Joshua 31.8 mg/dL LAB CHEMISTRY METHOD 03/02/2025 12:01 PM EDT [facility] Non HDL Chol. (LDL+VLDL) 101 <145 mg/dL LAB CHEMISTRY METHOD 03/02/2025 12:01 PM EDT [facility] Chol/HDL Ratio 3.4 0.0 - 4.4 LAB CHEMISTRY METHOD 03/02/2025 12:01 PM EDT [facility] Blood Venous blood specimen / Unknown Venipuncture / Unknown 03/02/2025 9:10 AM EDT 03/02/2025 9:14 AM EDT us Denise Noriega MD LAB BLOOD ORDERABLES Final Res ult [facility] [address] [place] [address], * Hemoglobin A1c (03/02/2025 9:10 AM EDT) Hemoglobin A1C 6.4 <6.5 % LAB CHEMISTRY METHOD 03/02/2025 1:52 PM EDT [facility] Mean Bld Glu Estim. 137 mg/dL LAB CHEMISTRY METHOD 03/02/2025 1:52 PM EDT [facility] Blood Venous blood specimen / Unknown Venipuncture / Unknown 03/02/2025 9:10 AM EDT 03/02/2025 9:14 AM EDT us Denise Noriega MD LAB BLOOD ORDERABLES Final Res ult [facility] [address] [place] [address], * (ABNORMAL) Comprehensive metabolic panel (03/02/2025 9:10 AM EDT) Sodium 145 133 - 145 mmol/L LAB CHEMISTRY METHOD 03/02/2025 12:01 PM [facility] Potassium 4.4 3.5 - 5.5 mmol/L LAB CHEMISTRY METHOD 03/02/2025 12:01 PM [facility] Chloride 112(H) 96 - 110 mmol/L LAB CHEMISTRY METHOD 03/02/2025 12:01 PM [facility] CO2 28 21 - 32 mmol/L LAB CHEMISTRY METHOD 03/02/2025 12:01 PM [facility] Anion Gap 5 3 - 11 LAB CHEMISTRY METHOD 03/02/2025 12:01 PM [facility] Glucose 130(H) 70 - 100 mg/dL LAB CHEMISTRY METHOD 03/02/2025 12:01 PM [facility] BUN 24 5 - 25 mg/dL LAB CHEMISTRY METHOD 03/02/2025 12:01 PM [facility] Creatinine 1.26 0.70 - 1.30 mg/dL LAB CHEMISTRY METHOD 03/02/2025 12:01 PM [facility] eGFR 58(L) >=60 mL/min/1. 73m2 LAB CHEMISTRY METHOD 03/02/2025 12:01 PM [facility] Comment:Calculation based on the Chronic Kidney Disease Epidemiology Collaboration (CKD-EPI) equation refit without adjustment for race. BUN/Creatinine Ratio 19.0 LAB CHEMISTRY METHOD 03/02/2025 12:01 PM [facility] Calcium 9.7 8.5 - 10.5 mg/dL LAB CHEMISTRY METHOD 03/02/2025 12:01 PM [facility] AST (SGOT) 20 10 - 42 unit/L LAB CHEMISTRY METHOD 03/02/2025 12:01 PM [facility] ALT (SGPT) 25 10 - 60 unit/L LAB CHEMISTRY METHOD 03/02/2025 12:01 PM [facility] Alkaline Phosphatase 40(L) 42 - 121 unit/L LAB CHEMISTRY METHOD 03/02/2025 12:01 PM [facility] Total Protein 6.5 6.0 - 8.0 g/dL LAB CHEMISTRY METHOD 03/02/2025 12:01 PM [facility] Albumin 3.7 3.2 - 5.0 g/dL LAB CHEMISTRY METHOD 03/02/2025 12:01 PM [facility] Total Bilirubin 0.4 0.0 - 1.4 mg/dL LAB CHEMISTRY METHOD 03/02/2025 12:01 PM [facility] Blood Venous blood specimen / Unknown Venipuncture / Unknown 03/02/2025 9:10 AM EDT 03/02/2025 9:14 AM EDT C Ti Noriega MD LAB BLOOD ORDERABLES Final Res ult [facility] [address] [place] [address], * Microalbumin creatinine urine ratio (09/01/2024 8:59 AM EST) Creatinine, Urine 186.0 mg/dL LAB CHEMISTRY METHOD 09/01/2024 12:05 PM EST [facility] Microalb, Ur 20.1 0.0 - 29.0 mg/L LAB CHEMISTRY METHOD 09/01/2024 12:05 PM EST [facility] Microalb/Creat Ratio 11 <30 mg/g creat LAB CHEMISTRY METHOD 09/01/2024 12:05 PM EST [facility] Urine Urine specimen obtained by clean catch procedure / Unknown Non-blood Collection / Unknown 09/01/2024 8:59 AM EST 09/01/2024 8:59 AM EST Denise Noriega MD LAB URINE ORDERABLES Final Res ult [facility] [address] [place] [address], [place] [phone] * Diabetes Foot Exam (03/01/2024) Diabetes: Annual Foot Exam Abstracted us Historical Provider HEALTH MAINTENANCE Final Result from Last 3 Months or Most Recently Relevant to Health Maintenance Insurance [facility] Care Teams Cigarette Carton Sealer Relationship Specialty Start Date End Date Denise Noriega MD [address] [place] [address] PCP - General Internal Medicine 11/20/15
== END 2025-08-06 14:21 | disposition home or self-care (01) ==
LOC: HO.HMGAL 14:20
PROVIDERS: PCP Pediatrics; Visit Provider Registered Nurse Emergency
DX: J30.89 Other allergic rhinitis (principal)
CPT/HCPCS: 95117; 95165

== ENCOUNTER 2025-08-20 13:26 | Outpatient (AMB) | payer BC, SELFPAY ==
--- OUTSIDE RECORDS SUMMARY | 2025-08-20 18:08 | XMS_ITS | Clinical Summary ---
Author Organization [facility] 230 [facility] Address [address] [place] [address] Phone Care Team Providers Care Shipwright Apprentice Name Role Phone Denise Noriega MD Primary Care Provider [phone] Allergies Active Allergy Reactions Criticality Noted Date Comments Levofloxacin 01/03/2019 Medications aspirin 81 mg EC tablet Take 81 mg by mouth daily. Active meclizine (ANTIVERT) 25 mg tablet Take 1 Tablet by mouth 3 times daily as needed (vertigo). 2 Active fenofibrate (LOFIBRA) 160 mg tablet Take 1 tablet (160 mg total) by mouth 1 (one) time each day. 90 tablet 1 5 Active levothyroxine (SYNTHROID, LEVOTHROID) 75 mcg tablet Take 1 tablet (75 mcg total) by mouth 1 (one) time each day. 90 tablet 1 5 Active losartan (COZAAR) 25 mg tablet Take 1 tablet (25 mg total) by mouth 1 (one) time each day. 90 tablet 1 5 Active metFORMIN (GLUCOPHAGE) 500 mg tablet TAKE 1 TABLET IN THE MORNING AND 2 TABLETS IN THE EVENING 270 tablet 1 5 Active simvastatin (ZOCOR) 40 mg tablet Take 1.5 tablets (60 mg total) by mouth at bedtime. 135 tablet 1 5 Active finasteride (PROSCAR) 5 mg tablet Take 1 tablet (5 mg total) by mouth 1 (one) time each day. Do not crush, chew, or split. 90 tablet 1 5 Active finasteride (PROSCAR) 5 mg tablet Take 1 tablet (5 mg total) by mouth 1 (one) time each day. Do not crush, chew, or split. 90 tablet 1 5 08/20/20 25 Discontinu ed(Reorder ) Active Problems Problem Noted Date Diagnosed Date Overweight (BMI 25.0-29.9) 02/07/2018 Nephrolithiasis 02/08/2017 Overview (07/24/2024): 4. Debi Type 2 diabetes mellitus wit h neurological manifestations, controlled ([facility] V24, [facility] V28) 02/19/2016 BPH (benign prostatic hyperplasia) 01/29/2016 Overview (07/24/2024): Prev elevated Psa. Bx neg. Diverticulosis of colon 01/29/2016 Essential hypertension 01/29/2016 Hypercholesteremia 01/29/2016 Hypothyroidism 01/29/2016 PAF (paroxysmal atrial fibri llation) ([facility] V24, [facility] V28) 01/29/2016 Overview (09/04/2024): 2016 [...] Surgery Date Site/Laterality Comments OTHER SURGICAL HISTORY [id number] PROCEDURE: HISTORY OTHER; COMMENT: needle Bx prostate APPENDECTOMY PROCEDURE: HISTORICAL APPENDECTOMY OTHER SURGICAL HISTORY childhood PROCEDURE: HISTORY OTHER; COMMENT: Bronchial ademona removal Medical History Medical History Date Comments Vitamin D deficiency 01/29/2016 DX:Vitamin D deficiency BPH (benign prostatic hyperplasia) 01/29/2016 DX:BPH (benign prostatic hyperplasia) PAF (paroxysmal atrial fibri llation) ([facility] V24, [facility] V28) 01/29/2016 DX:PAF (paroxysmal atrial fibrillation) ([facility]); COMMENT: Typically occurs with viral illness Hypothyroidism 01/29/2016 DX:Hypothyroidis m Hypercholesteremia 01/29/2016 DX:Hyperchole steremia Hypertension 01/29/2016 DX:Hypertension PAT (paroxysmal atrial tachy cardia) ([facility] V24) 01/29/2016 DX:PAT (paroxysmal atrial tachycardia) ([facility]); COMMENT: Holter 11/06/13 Diverticulosis of colon [...] do you feel lonely or isolated from ose around you? Never 02/23/2025 Food Risk [...] for your loved ones. For example, child daycare worker or elderly care for an older adult? [...] AM EST Office Visit Adult Medicine - [place] [address] [facility] [place] [address] Denise Noriega MD [address] [place] [address] Health Maintenance Due Date Last Done Comments [...] 2 diabetes mellitus ([facility] V24, [facility] V28) HM DIABETES FOOT EXAM Routine 03/01/2024 from Last [...] mg/dL LAB [facility] Non HDL Chol. (LDL+VLDL) 101 <145 mg/dL LAB CHEMISTRY METHOD 03/02/2025 12:01 PM [facility] Chol/HDL Ratio 3.4 0.0 - 4.4 LAB CHEMISTRY METHOD 03/02/2025 12:01 PM [facility] Blood Venous blood specimen / Unknown Venipuncture / Unknown 03/02/2025 9:10 AM EDT 03/02/2025 9:14 AM EDT C Ti Noriega MD LAB BLOOD ORDERABLES Final Res ult [facility] [address] [place] [address], * Hemoglobin A1c (03/02/2025 9:10 AM EDT) Hemoglobin A1C 6.4 <6.5 % LAB CHEMISTRY METHOD 03/02/2025 1:52 PM EDT [facility] Mean Bld Glu Estim. 137 mg/dL LAB CHEMISTRY METHOD 03/02/2025 1:52 PM EDT [facility] Blood Venous blood specimen / Unknown Venipuncture / Unknown 03/02/2025 9:10 AM EDT 03/02/2025 9:14 AM EDT [facility] Ti Noriega MD LAB BLOOD ORDERABLES Final Res ult [facility] [address] [place] [address], * (ABNORMAL) Comprehensive metabolic panel (03/02/2025 9:10 AM EDT) Sodium 145 133 - 145 mmol/L LAB CHEMISTRY METHOD 03/02/2025 12:01 PM [facility] Potassium 4.4 3.5 - 5.5 mmol/L LAB CHEMISTRY METHOD 03/02/2025 12:01 PM [facility] Chloride 112(H) 96 - 110 mmol/L LAB CHEMISTRY METHOD 03/02/2025 12:01 PM [facility] CO2 28 21 - 32 mmol/L LAB CHEMISTRY METHOD 03/02/2025 12:01 PM [facility] Anion Gap 5 3 - 11 LAB CHEMISTRY METHOD 03/02/2025 12:01 PM [facility] Glucose 130(H) 70 - 100 mg/dL LAB CHEMISTRY METHOD 03/02/2025 12:01 PM [facility] BUN 24 5 - 25 mg/dL LAB CHEMISTRY METHOD 03/02/2025 12:01 PM [facility] Creatinine 1.26 0.70 - 1.30 mg/dL LAB CHEMISTRY METHOD 03/02/2025 12:01 PM [facility] eGFR 58(L) >=60 mL/min/1. 73m2 LAB CHEMISTRY METHOD 03/02/2025 12:01 PM [facility] Comment:Calculation based on the Chronic Kidney Disease Epidemiology Collaboration (CKD-EPI) equation refit without adjustment for race. BUN/Creatinine Ratio 19.0 LAB CHEMISTRY METHOD 03/02/2025 12:01 PM [facility] Calcium 9.7 8.5 - 10.5 mg/dL LAB CHEMISTRY METHOD 03/02/2025 12:01 PM [facility] AST (SGOT) 20 10 - 42 unit/L LAB CHEMISTRY METHOD 03/02/2025 12:01 PM [facility] ALT (SGPT) 25 10 - 60 unit/L LAB CHEMISTRY METHOD 03/02/2025 12:01 PM [facility] Alkaline Phosphatase 40(L) 42 - 121 unit/L LAB CHEMISTRY METHOD 03/02/2025 12:01 PM [facility] Total Protein 6.5 6.0 - 8.0 g/dL LAB CHEMISTRY METHOD 03/02/2025 12:01 PM [facility] Albumin 3.7 3.2 - 5.0 g/dL LAB CHEMISTRY METHOD 03/02/2025 12:01 PM [facility] Total Bilirubin 0.4 0.0 - 1.4 mg/dL LAB CHEMISTRY METHOD 03/02/2025 12:01 PM [facility] Blood Venous blood specimen / Unknown Venipuncture / Unknown 03/02/2025 9:10 AM EDT 03/02/2025 9:14 AM EDT C Ti Noriega MD LAB BLOOD ORDERABLES Final Res ult [facility] [address] [place] [address], * Microalbumin creatinine urine ratio (09/01/2024 8:59 [...] MD LAB URINE ORDERABLES Final Res ult [facility] [address] [place] [address], * Diabetes Foot Exam (03/01/2024) [facility]ologist [facility] Diabetes: Annual Foot Exam Abstracted Historical Provider HEALTH MAINTENANCE Final Result from Last 3 Months or Most Recently Relevant to Health Maintenance Insurance [facility] Care Teams Shipwright Apprentice Relationship Specialty Start Date End Date Denise Noriega MD [address] [place] [address] PCP - General Internal Medicine 11/20/15
== END 2025-08-20 13:28 | disposition home or self-care (01) ==
LOC: HO.HMGAL 13:26
PROVIDERS: PCP Pediatrics; Visit Provider Registered Nurse Emergency
DX: J30.89 Other allergic rhinitis (principal)
CPT/HCPCS: 95117; 95165

== ENCOUNTER 2025-09-03 16:17 | Outpatient (AMB) | payer BC, SELFPAY | END 2025-09-03 16:18 | disposition home or self-care (01) | LOC: HO.HMGAL 16:17 | PROVIDERS: PCP Pediatrics; Visit Provider Registered Nurse Emergency | DX: J30.89 Other allergic rhinitis (principal) | CPT/HCPCS: 95117; 95165 ==